=== PATIENT | female | born 1940 ===

== ENCOUNTER 2024-07-21 17:21 | Emergency (ER) | payer SELFPAY ==
[2024-07-21 17:22] VITALS: BMI 25.0
[2024-07-21 17:25] VITALS: BP 151/85
[2024-07-21 17:34] VITALS: BP 130/71
--- NOTE | 2024-07-21 17:45 | ED.GENMED ---
History of Present Illness
General
Chief Complaint: Fall
Source: patient
Time Seen by Provider: 07/21/24 17:32
History of Present Illness
History of Present Illness:
83-year-old female presents to the emergency room for evaluation of a facial injury. Patient was outside having her after dinner cigarette when she slipped and fell into bushes. She sustained abrasions to her right face and orbit. She does have
some blood noted in the right eye. Patient has some pain in the area of injury but denies any other complaints. Family endorses the patient having had a couple glasses of wine tonight but otherwise seems at her baseline. She does not take any
oral anticoagulants.
Phy Exam
Physical Exam
Physical Exam:
General: Awake, Alert, Oriented X3, mildly intoxicated no acute distress.
Vitals: unremarkable
Head: Right facial abrasions from the forehead down to the infraorbital region and cheek. No true lacerations. No step-offs noted.
Eyes: Pupils equal, EOMI, right some conjunctival hemorrhage medially. There is a contusion to the right eyelid. The right pupil is round and reactive. There is no Pelon sign with fluorescein staining. Visual acuity is intact.
Throat: Airway intact, no exudates
Neck: Trachea midline
Lungs: Clear and equal b/l
Heart: Regular rate, no murmurs
Abd: Soft, Nontender, No pulsatile mass
Neuro: Cranial nerves intact, muscle strength equal bilaterally
Skin: Warm, dry, no rash
Extremities: pulses equal b/l, no edema
Course
Orders/Labs/Results
Orders:
Orders
07/21/24 17:44
CT Facial Bones W/o Iv Contras Urgent
Comment:
Reason For Exam: fall right orbit/facial injury
CT Head W/o Iv Contrast Urgent
Comment:
Reason For Exam: fall, head injury
07/21/24 17:45
Tetanus/Diphth/Acelpertussis [Adacel] 0.5 ml IM .ONCE ONE
07/21/24 18:13
Basic Metabolic Panel Urgent
Complete Blood Count/With Diff Urgent
Abnormal Lab Results
07/21/24
18:13
MCV 100.9 H fL
(81.0-99.0)
MCH 34.6 H pg
(27.0-31.0)
Carbon Dioxide 20 L mmol/L
(22-30)
Glucose 158 H mg/dl
(70-99)
07/21/24 18:13
07/21/24 18:13
Vital Signs
Initial and Last Documented VS:
Initial Vital Signs
Temp Pulse Resp BP Pulse Ox
97.9 F 60 18 151/85 100
07/21/24 17:25 07/21/24 17:25 07/21/24 17:25 07/21/24 17:25 07/21/24 17:25
Last Documented Vital Signs
Temp Pulse Resp BP Pulse Ox
97.9 F 58 14 134/78 99
07/21/24 17:25 07/21/24 18:56 07/21/24 18:56 07/21/24 18:56 07/21/24 18:56
MDM/Problems Addressed
Differential Diagnosis Includes:
Facial abrasion, orbital fracture, globe injury, corneal abrasion, intracranial injury
MDM/Problems Addressed:
Physical exam of the eyes shows a subconjunctival hemorrhage but no physical findings to suggest a more significant globe injury. Fluorescein was applied and there is no uptake of fluorescein or any evidence of aqueous humor emanating from the
anterior chamber. Imaging shows no bony injury nor any globe rupture on CT. There is no intracranial abnormalities. Patient has superficial injuries that do not require any closure. Patient stable for discharge home with family. Tetanus was
updated
*Radiology
Radiology exam reviewed: radiology read reviewed
*Pulse Oximetry
Patient hypoxic: no
*Critical Care Note
Total Time (30-74mins, 75-104mins- exclusive of procedures): Not Applicable
ED Attending Note
-
Portions of this chart may have been created with voice recognition software.� Occasional wrong word or��sound alike� substitutions may have occurred due to the inherent limitations of voice recognition software.
Discharge Plan
Departure
Patient Disposition: Home (Routine Discharge)
Date of Disposition: 07/21/24
Time of Disposition: 18:50
Patient with high blood pressure during this ER visit?: No
Condition: Good
Discharge Problem:
Head injury, Abrasion of face, Subconjunctival hemorrhage
Instructions: Head Injury in Adults (DC), Skin Abrasions (DC), Subconjunctival hemorrhage
Interventions
Interventions:
*Risk Screen - Suicide Last Done: 07/21/24 17:25
*General Assessment Last Done: 07/21/24 17:44
*Neglect/Abuse Screening Last Done: 07/21/24 17:44
ED- Fall Risk Assessment Last Done: 07/21/24 17:40
*Nursing Disposition Last Done: 07/21/24 18:56
ED-Musculoskeletal Assessment Last Done: 07/21/24 17:40
ED- Neurological Assessment Last Done: 07/21/24 17:40
ED-Skin Assessment Last Done: 07/21/24 17:40
Discharge Date and Time
Print Language: [id number]
[2024-07-21 18:19] LABS: % Basophils 0.8 % (0-2); % Eosinophils 3.1 % (0-6); % Immature Granulocytes 0.3 % (0-0.5); % Lymphocytes 33.3 % (20.5-51.1); % Monocytes 7.8 % (1.7-9.3); % Neutrophils 54.7 % (42.2-75.2); Absolute Basophils 0.1 10^3/uL (0-0.2); Absolute Eosinophils 0.2 10^3/uL (0-0.7); Absolute Lymphocytes 2.1 10^3/uL (1.2-3.4); Absolute Monocytes 0.5 10^3/uL (0.1-0.6); Absolute Neutrophils 3.5 10^3/uL (1.4-6.5); Hematocrit 44.9 % (37.0-47.0); Hemoglobin 15.4 g/dL (12.0-16.0); Mean Corp Hgb Conc. 34.3 g/dL (33.0-37.0); Mean Corpuscular Hgb 34.6 pg (27.0-31.0); Mean Corpuscular Volume 100.9 fL (81.0-99.0); Mean Platelet Volume 9.9 fL (7.4-10.4); Nucleated Red Blood Cells % 0 %; Platelet Count 198 10^3/uL (130-400); Red Blood Cell Count 4.45 10^6/uL (4.20-5.40); Red Cell Dist. Width 12.8 % (11.5-14.5); White Blood Cell Count 6.4 10^3/uL (4.8-10.8)
[2024-07-21 18:51] LABS: Blood Urea Nitrogen 16 mg/dl (7-17); Calcium 9.8 mg/dl (8.4-10.2); Carbon Dioxide 20 mmol/L (22-30); Chloride 100 mmol/L (98-107); Estimated Creatinine Clearance 51 ml/min; Glucose 158 mg/dl (70-99); Sodium 135 mmol/L (135-145); eGFR > 60.00
[2024-07-21 18:56] VITALS: BP 134/78
== END 2024-07-21 18:56 | disposition home or self-care (01) ==
LOC: EMR 17:21
PROVIDERS: EMERGENCY PHYSICIAN Emergency Medicine
DX: S00.81XA Abrasion of other part of head, initial encounter (principal); S00.211A Abrasion of right eyelid and periocular area, initial encounter; S05.11XA Contusion of eyeball and orbital tissues, right eye, initial encounter; S09.90XA Unspecified injury of head, initial encounter; H11.31 Conjunctival hemorrhage, right eye; W01.0XXA Fall on same level from slipping, tripping and stumbling without subsequent striking against object, initial encounter
CPT/HCPCS: 99284; 70450; 70486; 80048; 85025